=== PATIENT | female | born 1970 | race Caucasian/White ===

== ENCOUNTER 2021-09-14 22:15 | Emergency (ER) | payer MEDICAID ==
[~2021-09-14] VITALS: Ht 154.9 cm; Wt 102.0 kg
[~2021-09-14 22:15] MED LIST: ASPI-1497 PO; BENZ-16 MT; GLYB2.5T4 PO; LIP40 PO; LISI30TA36 PO; METF-415 PO
[2021-09-14] MEDS ORDERED: TOPUD MT (22:54)
[2021-09-14] MEDS ORDERED: CIPHCO LEFT EAR (22:54)
[2021-09-14] MEDS ORDERED: ACETAMINOPHEN 325MG TABLET PO ONE (23:00)
[2021-09-14 23:12] VITALS: BP 130/89
== END 2021-09-14 23:15 | disposition home or self-care (01) ==
LOC: ER 22:15
DX: H60.502 Unspecified acute noninfective otitis externa, left ear (principal); E11.9 Type 2 diabetes mellitus without complications; I10 Essential (primary) hypertension; E78.00 Pure hypercholesterolemia, unspecified; Z79.899 Other long term (current) drug therapy; Z98.51 Tubal ligation status; Z98.890 Other specified postprocedural states
CPT/HCPCS: 99283